=== PATIENT | female | born 1975 | race Caucasian/White ===

== ENCOUNTER 2025-08-13 17:06 | Emergency (ER) | payer SELFPAY ==
[2025-08-13 17:11] VITALS: BP 155/95; PULSE 115; TEMP 37.1; O2SAT 96; BMI 29.2
--- OUTSIDE RECORDS SUMMARY | 2025-08-13 17:22 | XMS_ITS | Clinical Summary ---
Author Organization [facility] Address [address], [address] [place] [address] Care Team Providers Care Communications Editor Name Role Phone Emani Salcido VIRTUAL OFFICE ASSISTANT - NURSE'S ASSISTANT Primary Care Provide r Allergies Active AllergyReactionsCriticalityNoted EqkmVoqzcvjlXqltjdsgxoyZlank50/09/2021 PenicillinsNausea And ZhwrmhsiEiu29/09/2021 Medications MedicationSigDispense QuantityRefillsLast FilledStart DateEnd DateStatus ALPRAZolam (XANAX XR) 0.5 MG extended release tablet Take 1 tablet by mouth 2 times daily. As iisroj6305/23/2022ctive atorvastatin (LIPITOR) 10 MG tablet Take 1 tablet by mouth daily 90 tablet 4Active omeprazole (PRILOSEC) 20 MG delayed release capsule Take 1 capsule by mouth daily 90 capsule 5Active albuterol sulfate HFA (PROVENTIL;VENTOLIN;PROAIR) 108 (90 Base) MCG/ACT inhaler Inhale 2 puffs into the lungs every 6 hours as needed for Wheezing 18 g 5Active Active Problems ProblemNoted DateDiagnosed DateGross abwvgmfeg51/17/2023Mixed incontinence urge and ruuiqz4412/05/2022Laryngeal mass09/28/2022hinovirus fzdqtxche76/11/2022Vocal cord mass09/27/20225066Lwdvrrx45/10/2022Moderate persistent asthma with exacerbation 05/30/2021Type 2 [place] (myocardial infarction)05/30/20218994Scdnuaypygsjm11/12/2021 Acute respiratory failure with xdqddvi2605/28/20216054Bhqzpmu38/10/2021Moderate episode of recurrent major depressive /10/2021ssential hypertension Mild intermittent asthma without complicationGastroesophageal reflux disease without esophagitisHistory of seizuresMixed hyperlipidemiaChronic migraine Resolved Problems ProblemNoted DateDiagnosed DateResolved DateRight upper lobe nwwqajmcl24/10/2022 01/10/2025Tobacco abuse Encounters DateTypeDepartmentCare FwqcXavjhczuust22/14/[address] [place] [address] Emani Salcido, VIRTUAL OFFICE ASSISTANT - NURSE'S ASSISTANT 06/01/20[address] [place] [address] Emani Salcido, VIRTUAL OFFICE ASSISTANT - NURSE'S ASSISTANT 05/29/20[address] [place] [address] Emani Salcido, VIRTUAL OFFICE ASSISTANT - NURSE'S ASSISTANT 05/24/2025 5:00 PM EDTOffice Visit [address] [place] [address] Devon Sales MD Cervical radiculopathy (Primary Dx); Mild intermittent asthma without complication; Mixed hyperlipidemia [E78.2]from Last 3 Months Immunizations ImmunizationAdministration DatesNext DueCOVID-19, Inactive, MODERNA BLUE border, Primary or Immunocompromised, (age 12y+)03/15/2021,02/13/2021Influenza, FLUARIX, FLULAVAL, FLUZONE (age 6 mo+) and AFLURIA, (age 3 y+), Quadv PF, 0.5mL 08/19/2021,12/30/2018Pneumococcal, PCV20, PREVNAR 20, (age 6w+), IM, 0.5mL 06/03/2023TDaP, ADACEL (age 10y-64y), BOOSTRIX (age 10y+), IM, 0.5mL06/03/2023 Family History Medical HistoryRelationNameCommentsDiabetesFatherGary ConnerHeart FailureFather Jaswinder ConnerHigh CholesterolFatherGary ConnerHypertensionFatherGary ConnerOther FatherGary ConnerCancerMaternal GrandfatherGuy KilgoreDiabetesMaternal GrandfatherGuy KilgoreBreast CancerMaternal GrandmotherJuanita KilgoreCancer Maternal GrandmotherJuanita KilgoreHypertensionPaternal GrandfatherOtherPaternal GrandfatherStrokePaternal GrandfatherRelationNameStatusCommentsFatherGary ConnerMaternal GrandfatherGuy KilgoreMaternal GrandmotherJuanita KilgorePaternal Grandfather Social History Tobacco UseTypesPacks/DayYears UsedDateSmoking Tobacco: FlrxllWdmrgcndmj074.6 1990 - 1Smokeless Tobacco: Never Tobacco Cessation:Counseling Given: Not Answered Alcohol UseStandard Drinks/WeekCommentsYes0 (1 standard drink = 0.6 oz pure alcohol)rarelyFISHER[facility] UtilitiesAnswerDate RecordedIn the past 12 months has the electric, gas, oil, or water [employer] threatened to shut off services in your home?No05/24/2025UDIT-CAnswerDate RecordedQ1: How often do you have a drink containing alcohol?Monthly or less09/27/2022Q2: How many drinks containing alcohol do you have on a typical day when you are drinking?1 or Q3: How often do you have six or more drinks on one occasion?Less than monthly 09/27/2022verall Financial Resource Strain (CARDIA)AnswerDate RecordedHow hard is it for you to pay for the very basics like food, housing, medical care, and heating?Not hard at all01/22/2024HQ-2AnswerDate RecordedPHQ-9 Total Score0 05/24/2025Hunger Vital SignAnswerDate RecordedWithin the past 12 months, you worried that your food would run out before you got the money to buymore.Never true05/24/2025Within the past 12 months, the food you bought just didn't last and you didn't have money to get more.Never true05/24/2025PRAPARE - TransportationAnswerDate RecordedIn the past 12 months, has lack of transportation kept you from medical appointments or from getting medications?No 05/24/2025In the past 12 months, has lack of transportation kept you from meetings, work, or from getting things needed for daily living?No05/24/2025 Housing Stability Vital SignAnswerDate RecordedUnable to Pay for Housing in the Last YearNot on file01/22/2024Number of Places Lived in the Last YearNot on file 01/22/2024In the last 12 months, was there a time when you did not have a steady place to sleep or slept in ashelter (including now)?No01/22/2024Housing Stability Vital SignAnswerDate RecordedIn the last 12 months, was there a time when you were not able to pay the mortgage or rent on time?No05/24/2025In the past 12 months, how many times have you moved where you were living? At any time in the past 12 months, were you homeless or living in a correction (including now)?No05/24/2025Food InsecurityAnswerDate RecordedWithin the past 12 months, you worried that your food would run out before you got the money to buymore.Within the past 12 months, the food you bought just didn't last and you didn't have money to get more.CommentsNoSex and Gender InformationValueDate RecordedSex Assigned at RqzlhMoefem55/06/2021 6:11 PM EDTLegal AehDmeiii05/03/2021 11:14 AM EDTGender UebtnhfsMgnubh22/06/2021 6:11 PM EDTSexual OrientationNot on fileOccupationIndustryJob Start DateJob End Date unemployedNot on fileNot on fileNot on file Last Filed Vital Signs Vital SignReadingTime TakenCommentsBlood Ovyyuxne194/8205/24/2025 4:51 PM EDT Zdkag579405/24/2025 4:51 PM WHSBuxdvlsrigu94.6 ??C (96 ??F)01/10/2025 11:02 AM EDT Respiratory Wvpj193303/07/2024 2:32 PM EDTOxygen Hheamsbivd07%05/24/2025 4:51 PM EDTInhaled Oxygen Concentration--Cubfvr40.8 kg (169 lb 6.4 oz)05/24/2025 4:51 PM XLATsbvku322.6 cm (5' 4 )04/11/2025 11:13 AM EDTBody Mass Index29.0804/11/2025 11:13 AM EDT Plan of Treatment Health MaintenanceDue DateLast DoneCommentsHepatitis B vaccine (1 of 3 - 19+ 3- dose series)1994HPV (without or with Pap)2005FIT/FOBT: Average risk 01/12/2020Fecal-DNA (Cologuard): Average risk01/12/2020Sigmoidoscopy/CT zlmfxvuvlohp09/26/3549Jyvvxehfjum50/27/202209/Colorectal Cancer Screen 2Cervical cancer xhzaht223Pap smear11/09/585100/Lung Cancer Screening &/or Mjplytzzot07/26/736400/01/2024, 09/26/2022hingles vaccine (1 of 2)01/11/20257860Gfabkr65/18/869756/, 06/03/2023, 11/04/2022, Additional history existsBreast cancer ibslks51/22//Flu vaccine (#1)/10/2020, 12/30/2018COVID-19 Vaccine ( season) 505/, 02/13/2021epression Crgbusddvz51/06/703298/03/2025, 05/24/2025Diabetes sviqfd82704/, 06/03/2023, 07/16/2022, Additional history existsDTaP/Tdap/Td vaccine (2 - Td or Tdap)06/03/2033 06/03/2023HIV xjzwzvEkajcjaqu13/16/2023Hepatitis C chdslpIvaqhqyif25/16/2023 Pneumococcal 0-49 years TysudkoFhimqrwpcozz14/16/2023neumococcal 50+ years RulugsnOfasggcae57/16/2023Hepatitis A vaccineAged OutNo longer eligible based on patient's age to complete this topicHib vaccineAged OutNo longer eligible based on patient's age to complete this topicMeningococcal (ACWY) vaccineAged OutNo longer eligible based on patient's age to complete this topicMeningococcal B vaccineAged OutNo longer eligible based on patient's age to complete this topic Polio vaccineAged OutNo longer eligible based on patient's age to complete this topic Procedures Procedure NamePriorityDate/TimeAssociated DiagnosisCommentsHEMOGLOBIN O5NHvfvbyr 02/04/2024 8:39 AM EDT Unable to lose weight Hyperglycemia LIPID CQDBQWloiopo47/18/2024 8:39 AM EDT Unable to lose weight CT CHEST LOW DOSE LCS FOLLOW-UP (LDCT)Lfmdian6812/21/2023 10:52 AM EST Lung nodule HIV YVRXXVHasqtmo05/16/2023 10:22 AM EDT Encounter for screening for HIV HEPATITIS C ECFKMEGVUdxnwsi10/16/2023 10:22 AM EDT Need for hepatitis C screening test NURA WILFREDO DIGITAL SCREEN KFWYYOKPVMgfwclz20/22/2023 4:23 PM EDT Breast cancer screening by mammogram HM PAP EOTOPSpdmwre95/22/2020HM YCRMOPWPUUCBxxfaam65/27/2012from Last 3 Months or Most Recently Relevant to Health Maintenance Results * Hemoglobin A1C (02/04/2024 8:39 AM EDT)ComponentValueRef RangeTest Method Analysis TimePerformed AtPathologist SignatureHemoglobin A1C5.04.0 - 6.0 % 02/04/2024 8:39 AM EDTMERCY LABORATORIESEstimated Avg Lknvmdi00eq/dL02/04/2024 8:39 AM EDTMERCY LABORATORIESComment: The ADA and AACC recommend providing the estimated average glucose result to permit better patient understanding of their HBA1c result. Specimen (Source)Anatomical Location / LateralityCollection Method / Volume Collection TimeReceived TimeBloodBLOOD SPECIMEN / Omsscyh5702/04/2024 8:39 AM EDT 02/04/2024 8:40 AM EDT Narrative Authorizing ProviderResult TypeResult StatusCelejarocho Jimenez Omari VIRTUAL OFFICE ASSISTANT - CNPCHEMISTRY ORDERABLESFinal ResultPerforming OrganizationAddressCity/State/ZIP CodePhone Number [facility] [address] [place] [address], [facility] [phone] [facility] [address] [place] [address], [facility] [phone] * (ABNORMAL) Lipid Panel (02/04/2024 8:39 AM EDT)ComponentValueRef RangeTest MethodAnalysis TimePerformed AtPathologist IwbyxrclwOzvvghxjpwn8141 - 199 mg/dL02/04/2024 8:39 AM EDTMERCY LABORATORIESComment: Cholesterol Guidelines: <200 Desirable 200-240 ??Borderline >240 Undesirable HDL55>40 mg/dL02/04/2024 8:39 AM EDTMERCY LABORATORIESComment: HDL Guidelines: <40 Undesirable 40-59 ?Borderline >59 Desirable LDL Vpwllhvangy496(H)0 - 100 mg/dL02/04/2024 8:39 AM EDTMERCY LABORATORIES Comment: LDL Guidelines: <100 Desirable 100-129 ?? Near to/above Desirable 130-159 ?? Borderline >159 Undesirable Direct (measured) LDL and calculated LDL are not interchangeable tests. Chol/HDL Ratio4. 8:39 AM EDTMERCY UZGNVYBTMALVLlfewnytnzjrr553<150 mg/dL02/04/2024 8:39 AM EDTMERCY LABORATORIESComment: Triglyceride Guidelines: <150 Desirable 150-199 ??Borderline 200-499 ??High >499 Very high Based on AHA Guidelines for fasting triglyceride, July 2012. KHTK30ol/dL02/04/2024 8:39 AM EDTMERCY LABORATORIESSpecimen (Source)Anatomical Location / LateralityCollection Method / VolumeCollection TimeReceived TimeBlood BLOOD SPECIMEN / Qxyciwd7202/04/2024 8:39 AM EDT02/04/2024 8:40 AM EDT Narrative Authorizing ProviderResult TypeResult StatusAntonycarlos Salcido VIRTUAL OFFICE ASSISTANT - CNPCHEMISTRY ORDERABLESFinal ResultPerforming OrganizationAddressCity/State/ZIP CodePhone Number [facility] [address] [place] [address], [facility] [phone] [facility] [address] [place] [address], [facility] [phone] * CT CHEST LOW DOSE (LDCT) (12/21/2023 10:52 AM EST)Anatomical RegionLaterality ModalityChestComputed TomographySpecimen (Source)Anatomical Location / LateralityCollection Method / VolumeCollection TimeReceived Time12/21/2023 11:08 AM EST Impressions 12/21/2023 11:10 AM EST Stable emphysema with subsolid 10 mm nodular density unchanged from 2021 study right upper lobe. ??No new or suspicious nodule. LUNG RADS: Lung-RADS 2 - Benign (v2022) Management: ??12 month screening LDCT Narrative 12/21/2023 11:10 AM EST EXAMINATION: LOW DOSE OF THE CT ??CHEST WITHOUT CONTRAST 12/21/2023 10:52 am TECHNIQUE: Low Dose of the CT Chest without the administration of intravenous contrast (MA=40). ??Multiplanar reformatted images are provided for review. Automated exposure control, iterative reconstruction, and/or weight based adjustment of the mA/kV was utilized to reduce the radiation dose to as low as reasonably achievable. COMPARISON: September 26, 2022 HISTORY: ORDERING SYSTEM PROVIDED HISTORY: Lung nodule TECHNOLOGIST PROVIDED HISTORY: Is the patient ?->No FINDINGS: Mediastinum: ??Thoracic aorta normal in course and caliber. ??No enlarged mediastinal or hilar lymph nodes by imaging size criteria. ??Heart size within normal limits. ??Thyroid and esophagus unremarkable as visualized. Lungs/Pleura: ??Stable emphysema. ??No consolidation, pneumothorax or pleural effusion. ??Central airways are patent. Stable ill-defined area of part solid 10 mm nodule in the right upper lobe unchanged from prior exam. ??No suspicious nodule demonstrated. Upper Abdomen: ??Limited visualization upper abdomen demonstrates no acute findings. Soft Tissues/Bones: Spinal degenerative changes with no acute findings. Procedure Note Cory Hargrove DO - 12/21/2023 EXAMINATION: LOW DOSE OF THE CT CHEST WITHOUT CONTRAST 12/21/2023 10:52 am TECHNIQUE: Low Dose of the CT Chest without the administration of intravenouscontrast (MA=40). Multiplanar reformatted images are provided for review.Automated exposure control, iterative reconstruction, and/or weight based adjustmentof the mA/kV was utilized to reduce the radiation dose to as low asreasonably achievable. COMPARISON: September 26, 2022 HISTORY: ORDERING SYSTEM PROVIDED HISTORY: Lung nodule TECHNOLOGIST PROVIDED HISTORY: Is the patient ?->No FINDINGS: Mediastinum: Thoracic aorta normal in course and caliber. No enlarged mediastinal or hilar lymph nodes by imaging size criteria. Heart sizewithin normal limits. Thyroid and esophagus unremarkable as visualized. Lungs/Pleura: Stable emphysema. No consolidation, pneumothorax orpleural effusion. Central airways are patent. Stable ill-defined area of part solid 10 mm nodule in the right upperlobe unchanged from prior exam. No suspicious nodule demonstrated. Upper Abdomen: Limited visualization upper abdomen demonstrates noacute findings. Soft Tissues/Bones: Spinal degenerative changes with no acute findings. IMPRESSION: Stable emphysema with subsolid 10 mm nodular density unchanged from 2021 study right upper lobe. No new or suspicious nodule. LUNG RADS: Lung-RADS 2 - Benign (v2022) Management: 12 month screening LDCT Authorizing ProviderResult TypeResult StatusKopedro Martinez VIRTUAL OFFICE ASSISTANT - CNPG CT ORDERABLESFinal Result * Hepatitis C Antibody (06/03/2023 10:22 AM EDT)ComponentValueRef RangeTest MethodAnalysis TimePerformed AtPathologist SignatureHepatitis C AbNONREACTIVE FOOTVWGJWCL70/16/2023 10:22 AM EDTMERCY LABORATORIESComment: ? The hepatitis C procedure used in our laboratory is a Chemiluminescent test specific for three recombinant HCV antigens. ??A negative anti-HCV result indicates that the antibodies to hepatitis C virus are not present at this time. Individuals with reactive anti-HCV should be considered infected and infectious until proven otherwise. ??Confirmation of all equivocal or reactive results is recommended by ordering HCV RNA by PCR. Specimen (Source)Anatomical Location / LateralityCollection Method / Volume Collection TimeReceived TimeBLOOD SPECIMEN / Iczcxii8006/03/2023 10:22 AM EDT 06/03/2023 10:23 AM EDT Narrative Authorizing ProviderResult TypeResult StatusEmani Salcido VIRTUAL OFFICE ASSISTANT - CNPIMMUNOLOGY ORDERABLESFinal ResultPerforming OrganizationAddressCity/State/ZIP CodePhone Number [facility] [address] [place] [address], [facility] [phone] [place] [address], [facility] [phone] * HIV Screen (06/03/2023 10:22 AM EDT)ComponentValueRef RangeTest MethodAnalysis TimePerformed AtPathologist SignatureHIV Ag/AbNONREACTIVENONREACTIVE 06/03/2023 10:22 AM EDTMERCY LABORATORIESComment: No laboratory evidence of HIV infection. ??If acute HIV infection is suspected, consider testing for HIV-1 RNA. Specimen (Source)Anatomical Location / LateralityCollection Method / Volume Collection TimeReceived TimeBLOOD SPECIMEN / Dleycvi7706/03/2023 10:22 AM EDT 06/03/2023 10:23 AM EDT Narrative Authorizing ProviderResult TypeResult StatusEmani Leonn VIRTUAL OFFICE ASSISTANT - CNPIMMUNOLOGY ORDERABLESFinal ResultPerforming OrganizationAddressCity/State/ZIP CodePhone Number [facility] [address] [place] [address], [facility] [phone] [place] [address], [facility] [phone] * NURA WILFREDO DIGITAL SCREEN BILATERAL (04/09/2023 4:23 PM EDT)Anatomical Region LateralityModalityBreastBilateralMammographySpecimen (Source)Anatomical Location / LateralityCollection Method / VolumeCollection TimeReceived Time 04/09/2023 4:27 PM EDT Impressions 04/10/2023 5:58 PM EDT No evidence of malignancy. Advise annual screening mammography. BI-RADS 1 BIRADS: BIRADS - CATEGORY 1 Negative, no evidence of malignancy. ??Normal interval follow-up is recommended in 12 months. OVERALL ASSESSMENT - NEGATIVE A letter of notification will be sent to the patient regarding the results. The [employer] recommends annual mammograms for women 40 years and older. Narrative 04/10/2023 5:58 PM EDT EXAMINATION: SCREENING DIGITAL BILATERAL MAMMOGRAM WITH TOMOSYNTHESIS, 04/09/2023 TECHNIQUE: Screening mammography was performed with tomosynthesis including MLO and CC views of the bilateral breasts. Computer aided detection was used for the interpretation of this exam. COMPARISON: None. ??Baseline study. HISTORY: Screening. Positive family history of breast cancer; maternal grandmother at 60; maternal aunt at 68 with breast cancer. ??Hormone replacement therapy or breast interventions. FINDINGS: Breasts are composed of scattered fibroglandular density. ??No skin thickening, nipple contour changes, suspicious calcifications, suspicious masses, or areas of architectural distortion are noted. Authorizing ProviderResult TypeResult StatusEmani Salcido APRN - CNPIMG MAMMOGRAPHY ORDERABLESFinal Result * PAP SMEAR (11/09/2019) Narrative Authorizing ProviderResult TypeResult StatusHistorical Provider MDHEALTH MAINTENANCEFinal Result * COLONOSCOPY (07/15/2012) Narrative Authorizing ProviderResult TypeResult StatusHistorical Provider MDHEALTH MAINTENANCEFinal Result from Last 3 Months or Most Recently Relevant to Health Maintenance Insurance Advance Directives * Full Code (Latest Code Status on File) Date ActivatedDate BotqdzlrnpfRwsaortq98/10/2022 12:18 AM09/28/2022 6:05 PM * Full Code Date ActivatedDate InactivatedComments05/30/2021 1:56 PM05/31/2021 3:09 PM Care Teams Team MemberRelationshipSpecialtyStart DateEnd Date Emani Salcido, VIRTUAL OFFICE ASSISTANT - NURSE'S ASSISTANT [address] [facility] [place] [place] [address] PCP - GeneralFamily Nurse Practitioner10/28/22
--- OUTSIDE RECORDS SUMMARY | 2025-08-13 17:22 | XMS_ITS | Clinical Summary ---
Author Organization [employer] [facility] tem Address [id number] [address] [place] [address] Care Team Providers Care Wet End Supervisor Name Role Phone Emani Salcido APRN-STOCK CRANE OPERATOR Primary Care Provider Allergies Active AllergyReactionsCriticalityNoted DateCommentsPenicillinsDiarrhea,Hives, Nausea And UwckrfrtOdb27/14/2019 Vomiting Medications * This document contains information received from the source organization and may not represent a complete record from that organization. MedicationSigDispense QuantityRefillsLast FilledStart DateEnd DateStatus albuterol (PROVENTIL HFA;VENTOLIN HFA) 90 mcg/actuation inhaler Indications:Exacerbation of asthma, unspecified asthma severity, unspecified whether persistentInhale 2 puffs every 6 (six) hours as needed for wheezing. 18 g 2Active ipratropium-albuteroL (DUONEB) 0.5 mg-3 mg(2.5 mg base)/3 mL nebulizer Indications:Exacerbation of asthma, unspecified asthma severity, unspecified whether persistentInhale 3 mL by nebulization in the morning and 3 mL at noon and 3 mL in the evening and 3 mL beforebedtime. 120 mL 2Active atorvastatin (LIPITOR) 10 mg tablet Take 1 tablet (10 mg total) by mouth in the morning.Active venlafaxine XR (EFFEXOR XR) 75 mg 24 hr capsule Indications:Moderate episode of recurrent major depressive disorder (CMS-HCC) Take 1 capsule (75 mg total) by mouth in the morning. 90 capsule 5Active Additional Information Patient not taking.Reported on 06/07/2025 ALPRAZolam (XANAX) 0.5 mg tablet Indications:MICHAEL (generalized anxiety disorder)TAKE 1/2 (ONE-HALF) TABLET BY MOUTH ONCE DAILY NEEDED FOR ANXIETY 45 tablet 5Active Active Problems ProblemNoted DateDiagnosed QbvtAiawhcrmuaw72/20/2023Moderate episode of recurrent major depressive jyywhtsd06/17/2022bnormal cardiovascular stress test 09/25/2021NSTEMI (non-ST elevated myocardial infarction)09/25/2021 Overview (09/25/2021): Added automatically from request for surgery [id number] Shortness of xhyjzh5806/13/2021Other chest pain06/13/2021levated troponin 06/13/2021cute respiratory failure with hypoxia and lzmaqiygmcn49/11/2021 Generalized anxiety jamjyhvj51/22/2017Social anxiety izkfrqan76/22/2017 Encounters * This document contains information received from the source organization and may not represent a complete record from that organization. DateTypeDepartmentCare BjepNaqephdokzy33/20/2025 9:30 AM EDTOffice Visit [facility] [address] [place] [address] Belkys Sharma MD NSTEMI (non-ST elevated myocardial infarction) ([facility]) (Primary Dx)06/07/2025 Hgwdjl6405/18/2025Travelfrom Last 3 Months Family History Medical HistoryRelationNameCommentsAnxiety disorderBrotherBipolar disorder DaughterDiabetesFatherHeart failureFatherHyperlipidemiaFatherHypertensionFather Anxiety disorderMaternal GrandfatherHyperlipidemiaMotherHypertensionMotherHeart attackPaternal GrandmotherSchizophreniaPaternal GrandmotherRelationNameStatus CommentsBrotherDaughterFatherAliveMaternal GrandfatherMotherAliveCARDIOMEGALY Paternal Grandmother Social History Tobacco UseTypesPacks/DayYears UsedDateSmoking Tobacco: Every NglDtfxuvtfec698 Started: 1993; Last attempted to quit: 2018Smokeless Tobacco: Never Tobacco Cessation:Ready to Q uit: Not Asked; Counseling Given: Not Answered Alcohol UseStandard Drinks/WeekCommentsYes0 (1 standard drink = 0.6 oz pure alcohol)SociallyChildcareAnswerDate FphbkdrvZoxhukgpvWxtkhxl85/12/2019Employment AnswerDate NrluqwiuNdytbrhwirDxvufgi75/12/2019Hunger ScreeningAnswerDate RecordedWithin the past 12 months we worried whether our food would run out before we got money to buy more.Never True06/07/2025Within the past 12 months the food we bought just didn't last and we didn't have money to get more.Never True06/07/2025Purpose - LifeAnswerDate RecordedPurpose and direction in life Hdnypug33/11/2021CommentsNoSex and Gender InformationValueDate Recorded Sex Assigned at BirthNot on fileLegal OmvJlidtb90/06/2015 11:44 AM EDTGender IdentityNot on fileSexual OrientationNot on file Last Filed Vital Signs Vital SignReadingTime TakenCommentsBlood Evxtxzhx390/9406/07/2025 9:44 AM EDT Qdmhc630706/07/2025 9:44 AM QPMTflhqzzinew53.6 ??C (97.8 ??F)07/29/2024 5:31 AM EDTRespiratory Wsjf7191 7:28 AM EDTOxygen Cxwmgadykm21%06/07/2025 9:44 AM EDTInhaled Oxygen Concentration--Ymxwqw87.3 kg (166 lb)06/07/2025 9:44 AM EDT Iryyyb248.6 cm (5' 4 )06/07/2025 9:44 AM EDTBody Mass Index28.4908 9:44 AM EDT Plan of Treatment Health MaintenanceDue DateLast DoneCommentsStatin Use: Fbrycflxdvfdzb1975 Tobacco Dxuijquhfa1975Depression Fqwimdqwb40/26/1987Adult BMI Follow Up Plan1993Pap Smear11/10//Zoster (Shingles) Vaccine (1 of 2) 2025OVID-19 Vaccine (3 - 2024- season)06/19//, 02/13/2021 Influenza Nbsovvj99/10/2020, 12/30/2018Adult BMI Dixbmwvsg82/20/2026 06/07/2025Tobacco Sxcumibyo84/20/55063006/07/2025DTaP,Tdap and Td Vaccines (2 - Td or Tdap) Medical Devices Not on file Procedures Procedure NamePriorityDate/TimeAssociated DiagnosisCommentsPOCT EKGRoutine 06/07/2025 NSTEMI (non-ST elevated myocardial infarction) ([facility]) from Last 3 Months Results * POCT EKG (06/07/2025) Narrative Authorizing ProviderResult TypeResult StatusChukwpatti Sharma MDECG ORDERABLES Final ResultPerforming OrganizationAddressCity/State/ZIP CodePhone Number MANUALLY TRANSCRIBED RESULTS from Last 3 Months Insurance Advance Directives * Full Code (Latest Code Status on File) Date ActivatedDate InactivatedComments05/30/2021 8:21 AM05/30/2021 1:36 PM Care Teams Team MemberRelationshipSpecialtyStart DateEnd Date Emani Salcido, LOSS PREVENTION INVESTIGATOR-STOCK CRANE OPERATOR [facility] [address] [address] PCP - GeneralNurse Practitioner06/13/21
[2025-08-13 17:33] LABS: Hematocrit 46.3 % (36.0-48.0); Hemoglobin 15.9 g/dL (12.0-16.0); Mean Corpuscular HGB Conc 34.3 g/dL (29.9-35.2); Mean Corpuscular Hemoglobin 30.3 pg (26.7-34.0); Mean Corpuscular Volume 88.4 fL (81.0-99.0); Platelet Count 279 10^3/uL (150-450); Red Blood Count 5.24 10^6/uL (4.20-5.40); White Blood Count 12.6 10^3/uL (4.0-11.0)
--- NOTE | 2025-08-13 17:37 | ED.GENADUL1 ---
HPI HPI - General Adult General Chief complaint: Abdominal Pain Stated complaint: ABDOMINAL PAIN Time Seen by Provider: 08/13/25 17:07 Source: patient Mode of arrival: walk-in History of Present Illness HPI narrative: Patient is a 50-year-old female that presents to the emergency department with complaints of 5 days of abdominal pain and nausea/vomiting. Patient states that on Thursday she was at work and developed a lot abdominal pain that she describes as behind her bellybutton . The next day she had severe diarrhea and ended up taking Imodium. She states she has not had a bowel movement since that day, which was . She has had persistent abdominal pain and nausea/vomiting. She states she cannot keep down any food since Thursday. She has been taking Tylenol and ibuprofen for the pain since it started. She states she obtained an antibiotic from her daughter, she thinks is doxycycline and did take 1 dose of that. She has a history of GERD and anxiety. She takes Xanax and omeprazole. She denies any abdominal surgeries but has had sections. She does endorse flatus. Related Data Home Medications ?Medication ?Instructions ?Recorded ?Confirmed alprazolam 0.5 mg tablet 0.5 mg PO DAILY PRN anxiety 08/13/25 08/13/25 Previous Rx's ?Medication ?Instructions ?Recorded ondansetron 4 mg disintegrating 4 mg PO Q8H 4 days #12 tabs 08/13/25 tablet Allergies Allergy/AdvReac Type Severity Reaction Status Date / Time Penicillins AdvReac Severe Rash Verified 08/13/25 17:16 Opioid HPI Opioid Management Opioid side effects: constipation, other changes in bowel habits, nausea and decreased appetite Prescription drug monitoring program results: PDMP reviewed and no issues identified Review of Systems ROS Status of ROS 10 or more systems reviewed and unremarkable except as noted in history and below PFSH PFSH Social History Little interest or pleasure in doing things: not at all Feeling down, depressed, or hopeless: not at all Exam Narrative Exam Narrative: General: No distress but appears uncomfortable, tearful, age-appropriate Skin: Warm, dry, no pallor. No rash. Head: Normocephalic, atraumatic. Neck: Supple, non-tender. Eye: Pupils are equal, round and EOMI. No scleral icterus. Ears, Nose, Mouth, and Throat: No nasal mucosal hypertrophy. Oral mucosa is moist, no posterior oropharynx erythema, uvula is mid-line Cardiovascular: Regular Rate and Rhythm without murmur, gallop or rub. Respiratory: No accessory muscle use or respiratory distress. Lungs are clear to auscultation, no wheezing, rales or rhonchi Chest Wall: no tenderness Musculoskeletal: Full ROM of all extremities, no calf or popliteal tenderness GI: Abdomen is soft, non-distended, tender with palpation epigastric and right upper quadrant. No masses appreciated. No rebound, guarding, or rigidity noted. Neurological: A&O x4. No cranial nerve dysfunction observed. No truncal ataxia. Moves all extremities. Sensation intact. Psychiatric: Cooperative and interactive. Normal mood and affect. Constitutional Vital Signs, click to edit/add: Last Vital Signs Temp 98.7 F 08/13/25 17:11 Pulse 71 08/13/25 22:36 Resp 18 08/13/25 22:36 BP 123/99 H 08/13/25 22:36 Pulse Ox 97 08/13/25 22:36 O2 Del Method Room Air 08/13/25 17:11 Course Vital Signs Vital signs: Vital Signs Temperature 98.7 F 08/13/25 17:11 Pulse Rate 115 H 08/13/25 17:11 Respiratory Rate 22 H 08/13/25 17:11 Blood Pressure 155/95 H 08/13/25 17:11 Pulse Oximetry 96 08/13/25 17:11 Oxygen Delivery Method Room Air 08/13/25 17:11 Temperature 98.7 F 08/13/25 17:11 Pulse Rate 71 08/13/25 22:36 Respiratory Rate 18 08/13/25 22:36 Blood Pressure 123/99 H 08/13/25 22:36 Pulse Oximetry 97 08/13/25 22:36 Oxygen Delivery Method Room Air 08/13/25 17:11 Medical Decision Making MDM Narrative Medical decision making narrative: This is a 50-year-old female that presented to the emergency department with complaints of 5 days of abdominal pain, nausea, and vomiting. No history of abdominal surgeries, history of sections. She did have loose stools 4 days ago, on , she took Imodium and has not had a bowel movement since. She has also been taking ibuprofen/Tylenol without relief of her pain. She has a history of anxiety and GERD. She takes Xanax and omeprazole. On arrival patient is hypertensive, BP is 155/95, she appears to be in pain, heart rate tachycardic at 115. Temperature is afebrile 98.7. Tenderness with palpation of the epigastric and right upper quadrant. No rebound tenderness, nonperitoneal. IV placed. 1 L normal saline ordered. 0.5 mg Dilaudid and 4 mg Zofran ordered. CBC, CMP, lipase, UA ordered. CT abdomen/pelvis with IV contrast ordered. Mild leukocytosis and hypokalemia, WBC 12.6?possibly reactive to vomiting and pain, K 3.2. UA without signs of infection. Hemoglobin 15.9. Lipase within normal limit. LFTs within normal limits. CT abdomen/pelvis with IV contrast still pending. On reevaluation patient and updated with lab results, nausea and pain have resolved. Patient was sleeping on my arrival and states she is feeling better. After update patient reported to RN that pain and nausea have returned. Patient has not vomited in the department. Another dose of 0.5 mg Dilaudid and [address] abdomen/pelvis with IV contrast was negative for SBO, inflammatory process, etc. CT scan and radiological read reviewed. I did give patient a copy of the results. When I presented to discuss plan and go over CT results patient upset that she has been waiting so long and upset her imaging and labs are negative. She states she is having a lot of anxiety as she has to be at work early in the morning and will lose her job if she does not go tomorrow. We did discuss admission for pain control and further workup versus pain and nausea control here with discharge with Zofran and close GI follow-up. At this time, 2200, patient was signed out to Dr Ledesma. In their discussion, patient's pain was still not controlled and we recommended admission for pain and nausea control. Patient states that she did not have insurance and did not want to stay as she had to go to work tomorrow or she would lose her job. It was discussed at that point that patient would need to sign out against medical advice. The patient was informed of the risks and potential consequences of leaving the hospital against medical advice, including the possibility of worsening symptoms, complications, or . The patient was given the opportunity to ask questions and express concerns. Despite these warnings, the patient chose to leave the facility voluntarily. The decision to leave [place] was documented, and the patient signed the AMA form acknowledging understanding of the risks involved. All relevant discharge instructions were provided. The patient was advised to seek follow-up care as needed and was informed that they have the right to return for further treatment. Differential Diagnosis Differential Diagnosis: SBO, pancreatitis, diverticulitis, gastroenteritis Lab Data Lab results reviewed: Yes I reviewed the patient's lab results Labs: Lab Results 08/13/25 08/13/25 Range/Units 17:20 20:45 WBC 12.6 H (4.0-11.0) 10^3/uL RBC 5.24 (4.20-5.40) 10^6/uL Hgb 15.9 (12.0-16.0) g/dL Hct 46.3 (36.0-48.0) % MCV 88.4 (81.0-99.0) fL MCH 30.3 (26.7-34.0) pg MCHC 34.3 (29.9-35.2) g/dL RDW 13.2 (11.0-15.0) % Plt Count 279 (150-450) 10^3/uL MPV 10.4 (9.5-13.5) fL Seg Neuts % (Manual) 60.0 (43.0-75.0) Lymphocytes % (Manual) 29.0 (20.5-60.0) % Atypical Lymphs % (Man) 7.0 % Monocytes % (Manual) 3.0 (1.7-12.0) % Eosinophils % (Manual) 1.0 (0.9-7.0) % Basophils % (Manual) 0.0 L (0.2-2.0) % Neutrophils # (Manual) 7.56 H (1.4-6.5) 10^3/uL Lymphocytes # (Manual) 3.65 (1.20-3.80) 10^3/uL Abs Atypical Lymphs Man 0.88 Monocytes # (Manual) 0.37 (0.30-0.80) 10^3/uL Eosinophils # (Manual) 0.12 (0.00-0.70) 10^3/uL Basophils # (Manual) 0.00 (0.00-0.10) 10^3/uL Sodium 137 (136-145) mmol/L Potassium 3.2 L (3.5-5.1) mmol/L Chloride 98 (98-107) mmol/L Carbon Dioxide 30.9 (21.0-32.0) mmol/L Anion Gap 11.3 BUN 13.0 (7.0-18.0) mg/dL Creatinine 0.62 (0.55-1.02) mg/dL Est GFR ( Amer) >60 (>=60 mL/min/1.73m^2) Est GFR (Non-Af Amer) >60 (>=60 mL/min/1.73m^2) BUN/Creatinine Ratio 21.0 Glucose 125 H (74-106) mg/dL Calcium 9.0 (8.5-10.1) mg/dL Total Bilirubin 0.5 (0.2-1.0) mg/dL AST 22 (15-37) U/L ALT 31 (14-59) U/L Alkaline Phosphatase 87 (46-116) U/L Total Protein 7.3 (6.4-8.2) g/dL Albumin 3.6 (3.4-5.0) g/dL Globulin 3.7 g/dL Albumin/Globulin Ratio 1.0 Lipase 44.0 (16.0-77.0) U/L Urine Color Yellow (YELLOW) Urine Clarity Clear (CLEAR) Urine pH 5.5 (5.0-9.0) Ur Specific Roy 1.015 (1.005-1.025) Urine Protein >=300 A (NEG/TRACE) mg/dL Urine Glucose (UA) Negative (NEGATIVE) mg/dL Urine Ketones 15 A (NEGATIVE) mg/dL Urine Occult Blood Small A (NEGATIVE) Urine Nitrite Negative (NEGATIVE) Urine Bilirubin Negative (NEGATIVE) Urine Urobilinogen 0.2 (0.2-1.0) EU/dL Ur Leukocyte Esterase Negative (NEGATIVE) Urine RBC 0-2 (0-2) #/HPF Urine WBC 0-2 A (NONE SEEN) #/HPF Ur Squamous Epith Cells Rare (NONE/RARE) #/LPF Urine Crystals None seen (None Seen) #/HPF Urine Bacteria None seen (NONE SEEN) #/HPF Urine Casts None seen (NONE SEEN) #/LPF Urine Mucus None seen (NONE SEEN) Ur Culture Indicated? No Imaging Data CT scan - abdomen: Attestation: I have reviewed the pertinent imaging results. Discharge Plan Discharge Stand Alone Forms: Portal Instructions Chief Complaint: Abdominal Pain Clinical Impression: Abdominal pain Patient Disposition: Left Against Medical Advice Time of Disposition Decision: 22:07 Mode of Transportation: Private Vehicle Prescriptions / Home Meds: New ondansetron 4 mg tablet,disintegrating 4 mg PO Q8H 4 Days Qty: 12 0RF No Action alprazolam 0.5 mg tablet 0.5 mg PO DAILY PRN (Reason: anxiety) Print Language: Sinhala Referrals: Emani Salcido NP [Primary Care Provider] - 1 week Discharge Date/Time: 08/13/25 22:54
[2025-08-13 17:58] LABS: Alanine Aminotransferase 31 U/L (14-59); Albumin Globulin Ratio 1.0; Albumin Level 3.6 g/dL (3.4-5.0); Alkaline Phosphatase 87 U/L (46-116); Anion Gap 11.3; Aspartate Amino Transferase 22 U/L (15-37); Blood Urea Nitrogen 13.0 mg/dL (7.0-18.0); Calcium 9.0 mg/dL (8.5-10.1); Carbon Dioxide 30.9 mmol/L (21.0-32.0); Chloride 98 mmol/L (98-107); Estimated GFR (African America >60 (>=60 mL/min/1.73m^2); Estimated GFR (Non-African Ame >60 (>=60 mL/min/1.73m^2); Globulin 3.7 g/dL; Glucose 125 mg/dL (74-106); Potassium 3.2 mmol/L (3.5-5.1); Sodium 137 mmol/L (136-145); Total Protein 7.3 g/dL (6.4-8.2)
[2025-08-13 18:06] LABS: Lipase 44.0 U/L (16.0-77.0)
[2025-08-13] MEDS: 0.9 % SODIUM CHLORIDE 1,000 ML 1000 ML IV (18:08)
[2025-08-13] MEDS: HYDROMORPHONE HCL 0.5 MG/0.5 ML SYRINGE IV ×2 (18:09→22:08)
[2025-08-13 18:15] LABS: Atypical Lymphocytes % Manual 7.0 %; Atypical Lymphocytes Abs Man 0.88; Basophils Abs Manual 0.00 10^3/uL (0.00-0.10); Basophils Percent Manual 0.0 % (0.2-2.0); Eosinophils Absolute Manual 0.12 10^3/uL (0.00-0.70); Eosinophils Percent Manual 1.0 % (0.9-7.0); Lymphocytes Absolute Manual 3.65 10^3/uL (1.20-3.80); Lymphocytes Percent Manual 29.0 % (20.5-60.0); Monocytes Absolute Manual 0.37 10^3/uL (0.30-0.80); Monocytes Percent Manual 3.0 % (1.7-12.0); Segmented Neut Absolute Manual 7.56 10^3/uL (1.4-6.5); Segmented Neutrophils % Manual 60.0 (43.0-75.0)
[2025-08-13 19:27] VITALS: BP 149/84; PULSE 80; O2SAT 94
[2025-08-13 20:45] VITALS: BP 149/99; PULSE 69; O2SAT 97
[2025-08-13 20:52] LABS: Glucose Urine UA NEGATIVE (NEGATIVE)
[2025-08-13 20:58] LABS: Cast Seen? NONE SEEN #/LPF (NONE SEEN); Crystals Seen? None Seen #/HPF (None Seen); Urine Culture Indicated NO
[2025-08-13 22:36] VITALS: BP 123/99; PULSE 71; O2SAT 97
[2025-08-13] MEDS: ONDANSETRON 4 MG RAPDIS TABLET SL ×2 (22:47)
== END 2025-08-13 22:54 | disposition left against medical advice (07) ==
PROVIDERS: Student in an Organized Health Care Education/Training Program; Emergency Provider Internal Medicine; PCP Nurse Practitioner Women's Health
DX: R10.9 Unspecified abdominal pain (principal); Z53.29 Procedure and treatment not carried out because of patient's decision for other reasons; K21.9 Gastro-esophageal reflux disease without esophagitis; F41.9 Anxiety disorder, unspecified; Z79.899 Other long term (current) drug therapy
CPT/HCPCS: 36415; 74177; 80053; 81001; 83690; 85007; 85027; 96361; 96374; 96375; 96376; 99285; J1171; J2405; Q0162; Q9967